=== PATIENT | male | born 1945 | race Caucasian/White ===

== ENCOUNTER → 2017-11-11 | Outpatient (CLI) | payer OTHER ==
[~2017-11-11] MED LIST: ATOR-22 PO; FINA5TAB PO; HYDR-3983 PO; ONDA4TAB46 PO
[2017-11-11 09:35] LABS: BASO % 0.5 %; BASO ABS # 0.04 K/uL (0-0.2); EOS % 2.5 %; EOS ABS # 0.21 K/uL (0-0.5); HEMATOCRIT 46.4 % (42-52); HEMOGLOBIN 16.5 g/dL (14.0-18.0); IG# 0.06 K/uL (0.00-0.02); LYMPH % 32.8 %; LYMPH ABS # 2.71 K/uL (1.2-3.4); MEAN CELL VOLUME 95.1 fL (80-100); MEAN CORPUSCULAR HEMOGLOBIN 33.8 pg (25-34); MEAN CORPUSCULAR HGB CONC 35.6 g/dl (32-36); MEAN PLATELET VOLUME 10.5 fL (7.4-10.4); MONO % 5.5 %; MONO ABS # 0.45 K/uL (0.11-0.59); NEUT ABS # 4.78 K/uL (1.4-6.5); PLATELET COUNT 186 K/uL (130-400); RED CELL DISTRIBUTION WIDTH CV 12.2 % (11.5-14.5); RED CELL DISTRIBUTION WIDTH SD 41.6 fL (36.4-46.3); WHITE BLOOD COUNT 8.25 K/uL (4.8-10.8)
== END | disposition home or self-care (01) ==
LOC: C.LAB 08:26
PROVIDERS: ATTEND Family Medicine
DX: R53.83 Other fatigue (principal)

== ENCOUNTER → 2017-12-22 | Outpatient (CLI) | payer OTHER ==
--- NOTE | 2017-12-22 07:46 | DIAGNOSTIC IMAGING REPORT ---
SINUS CT CT DOSE: 305.32 mGycm HISTORY: CHRONIC SINUSITIS TECHNIQUE: Multiaxial CT images of the paranasal sinuses were performed and reformatted in the coronal plane without the use of contrast. A dose lowering technique was utilized adhering to the principles of ALARA. The data will utilized for intraoperative guidance. COMPARISON: Sinus CT 05/18/2010. FINDINGS: The frontal sinuses are clear. Minimal mucosal thickening within the anterior ethmoid air cells and floor severe pulmonary sinuses. The sphenoid sinuses are clear. No fluid levels within the paranasal sinuses. Complete opacification of the right mastoid air cells and partial opacification of the bilateral middle ear cavities. There is also near complete opacification of the left mastoid air cells. The bilateral ostiomeatal units are patent. Minimal left nasal septal deviation. The orbital floors and lamina papyracea are intact. No fluid levels within the paranasal sinuses. The visualized brain parenchyma is unremarkable. The orbits are unremarkable. IMPRESSION: 1. Minimal mucosal thickening within the paranasal sinuses. No fluid levels identified. 2. Minimal left nasal septal deviation. 3. Bilateral mastoid effusions and partial opacification of the middle ear cavities. Electronically signed by: Gurwinder Minaya M.D. 12/22/2017 7:57 AM Dictated Date/Time: 12/22/2017 7:43 AM
== END | disposition home or self-care (01) ==
LOC: C.CTS 07:16
PROVIDERS: ATTEND Otolaryngology
DX: J32.9 Chronic sinusitis, unspecified (principal); H74.93 Unspecified disorder of middle ear and mastoid, bilateral